=== PATIENT | male | born 1985 | race Caucasian/White ===

== ENCOUNTER 2020-09-09 10:06 | Emergency (ER) | payer BC, OTHER ==
[2020-09-09 10:57] LABS: HEMOGLOBIN 14.5 gm/dl (14.0-17.5); RED BLOOD COUNT 4.87 M/UL (4.20-5.50); WHITE BLOOD COUNT 10.9 K/UL (4.5-11.0)
[2020-09-09 11:23] LABS: BUN/CREATININE RATIO 14 (0-10)
[2020-09-09] MEDS ORDERED: HYDROCODON-ACE1 EAC4 PO (11:45)
== END 2020-09-09 12:40 | disposition home or self-care (01) ==
LOC: ER1 10:06
PROVIDERS: Emergency Medicine
DX: N13.2 Hydronephrosis with renal and ureteral calculous obstruction (principal); Z88.6 Allergy status to analgesic agent
CPT/HCPCS: 36415; 80053; 81001; 85025; 96374; 96375; 99284; J2270; J2405